=== PATIENT | male | born 1955 ===

== ENCOUNTER 2017-12-20 01:16 | Emergency (ER) | payer OTHER ==
[2017-12-20 01:33] VITALS: RESP 20
[2017-12-20] MEDS ORDERED: Albuterol-Ipratrop 3 mg / 0.5 (3 ml) UD ONE ×2 (01:36→01:52)
--- NOTE | 2017-12-20 01:37 | C.PDOC ---
History Of Present Illness Patient with a Hx of asthma presents to the ER with a complaint of wheezing that began an hour ago. Patient is currently speaking in complete sentences; denies chest pain, nausea, or vomiting. Time Seen by Provider: 12/20/17 01:36 Chief Complaint (Nursing): Shortness Of Breath History Per: Patient History/Exam Limitations: no limitations Onset/Duration Of Symptoms: Hrs Current Symptoms Are (Timing): Still Present Initiating Event: Other (not known) Current Respiratory Medications: None Severity: Moderate Pain Scale Rating Of: 4 Associated Symptoms: denies: Fever, Chills, Chest Pain Past Medical History Reviewed: Historical Data, Nursing Documentation, Vital Signs Vital Signs: Last Vital Signs Temp 98 F 12/20/17 01:29 Pulse 86 12/20/17 01:29 Resp 20 12/20/17 01:29 BP 153/82 H 12/20/17 01:29 Pulse Ox 99 12/20/17 01:51 - Medical History PMH: Emphysema, Hypercholesterolemia Family History: States: No Known Family Hx - Social History Hx Alcohol Use: No Hx Substance Use: No Review Of Systems Constitutional: Negative for: Fever, Chills Cardiovascular: Negative for: Chest Pain, Palpitations Respiratory: Positive for: Wheezing Gastrointestinal: Negative for: Nausea, Vomiting Physical Exam - Physical Exam Appears: Non-toxic Skin: Warm, Dry Head: Normacephalic Oral Mucosa: Moist Chest: Symmetrical, No Tenderness Cardiovascular: Rhythm Regular Respiratory: No Rales, No Rhonchi, Wheezing (Scattered) Gastrointestinal/Abdominal: Soft, No Tenderness Neurological/Psych: Oriented x3 ED Course And Treatment O2 Sat by Pulse Oximetry: 99 (room air) Pulse Ox Interpretation: Normal Progress Note: Prednisone and albuterol nebulizer administered. Reevaluation Time: 02:40 Reassessment Condition: Improved Critical Care Time - Critical Care Note Total Time (in mins): 30 Documented critical care: time excludes all time spent performing seperately billable procedures. Disposition Counseled Patient/Family Regarding: Studies Performed, Diagnosis, Need For Followup - Disposition Referrals: [facility] [Outside] [facility] [Outside] Disposition: HOME/ ROUTINE Disposition Time: 01:37 Condition: FAIR Prescriptions: predniSONE [predniSONE Tab] 20 mg PO DAILY #5 tab Instructions: Asthma, Adult (DC) Forms: [employer] (Sudanese) - Clinical Impression Clinical Impression: Asthma exacerbation - Scribe Statement The provider has reviewed the documentation as recorded by the Scribe Heath Kumar All medical record entries made by the Scribe were at my direction and personally dictated by me. I have reviewed the chart and agree that the record accurately reflects my personal performance of the history, physical exam, medical decision making, and the department course for this patient. I have also personally directed, reviewed, and agree with the discharge instructions and disposition.
[2017-12-20] MEDS: Albuterol-Ipratrop 3 mg / 0.5 (3 ml) UD IH SCH (01:51)
[2017-12-20 02:50] VITALS: BP 134/81; PULSE 94; TEMP 98.5; O2SAT 94
== END 2017-12-20 03:02 | disposition home or self-care (01) ==
LOC: C.ER 01:16
DX: J45.901 Unspecified asthma with (acute) exacerbation (principal)

== ENCOUNTER 2017-12-20 20:42 | Inpatient (IN) | payer OTHER ==
[2017-12-20] MEDS ORDERED: Albuterol-Ipratrop 3 mg / 0.5 (3 ml) UD ONE ×2 (20:55→21:43)
[2017-12-20] MEDS ORDERED: Albuterol-Ipratrop 3 mg / 0.5 (3 ml) UD IH SCH (21:15)
[2017-12-20 21:29] LABS: BASO % 0.4 % (0.0-2.0); EOS # 0.1 K/uL (0.0-0.7); EOS % 0.8 % (0.0-4.0); HEMOGLOBIN 13.4 g/dL (12.0-18.0); LYMPH # 1.3 K/uL (1.0-4.3); LYMPH % 13.8 % (20.0-40.0); MEAN CELL VOLUME 79.2 fL (80.0-94.0); MEAN CORPUSCULAR HEMOGLOBIN 27.3 pg (27.0-31.0); MEAN CORPUSCULAR HGB CONC 34.5 g/dL (33.0-37.0); MEAN PLATELET VOLUME 8.1 fL (7.2-11.7); MONO # 0.7 K/uL (0.0-0.8); RBC 4.91 Mil/uL (4.40-5.90); RED CELL DISTRIBUTION WIDTH 15.4 % (11.5-14.5); WHITE BLOOD COUNT 9.1 K/uL (4.8-10.8)
[2017-12-20 21:40] LABS: ALB/GLOB RATIO 0.8 (1.0-2.1); ALBUMIN 2.8 g/dL (3.5-5.0); ALT/SGPT 51 U/L (21-72); AST/SGOT 45 U/L (17-59); BLOOD UREA NITROGEN 14 mg/dL (9-20); CALCIUM 7.5 mg/dl (8.6-10.4); GFR AFRICAN-AMERICAN > 60; GFR NON-AFRICAN AMERICAN > 60
[2017-12-20 21:52] LABS: B-TYPE NATRIURETIC PEPTIDE 231 pg/mL (0-900)
[2017-12-20] MEDS ORDERED: cefTRIAXone IV 1 gm in Dextros 50 ML IVPB ONE ×2 (22:25→22:42)
[2017-12-20] MEDS ORDERED: Azithromycin 500 MG in Sodium Chloride 0.9% 250 ML IVPB STA (22:26)
--- NOTE | 2017-12-20 23:43 | C.PDOC ---
Time Seen by Provider: 12/20/17 20:57 Chief Complaint (Nursing): Shortness Of Breath History Per: Patient Onset/Duration Of Symptoms: Days (few) Current Symptoms Are (Timing): Worse Current Respiratory Medications: See Home Med List Severity: Moderate Associated Symptoms: Productive Cough Reports Recently: Seen In ED Additional History Per: Prior Records Past Medical History Reviewed: Historical Data, Nursing Documentation, Vital Signs Vital Signs: Last Vital Signs Temp 97.8 F 12/20/17 20:47 Pulse 102 H 12/20/17 22:47 Resp 19 12/20/17 22:47 BP 112/70 12/20/17 22:47 Pulse Ox 98 12/20/17 22:47 - Medical History PMH: COPD, Emphysema, Hypercholesterolemia Family History: States: Unknown Family Hx - Social History Hx Tobacco Use: No (quit years ago) Hx Alcohol Use: No Hx Substance Use: No Review Of Systems Except As Marked, All Systems Reviewed And Found Negative. Constitutional: Negative for: Weakness ENT: Negative for: Throat Pain Cardiovascular: Negative for: Chest Pain Respiratory: Positive for: Cough, Shortness of Breath, Sputum, Wheezing. Negative for: Hemoptysis Gastrointestinal: Negative for: Vomiting, Abdominal Pain, Diarrhea Musculoskeletal: Negative for: Neck Pain, Back Pain, Leg Pain Skin: Negative for: Rash Neurological: Negative for: Weakness, Numbness Physical Exam - Physical Exam Appears: Non-toxic, In Acute Distress (mild) Skin: Normal Color, Warm, Dry, No Rash Head: Atraumatic, Normacephalic Eye(s): bilateral: Normal Inspection, PERRL, EOMI Neck: Normal ROM, Supple Cardiovascular: Rhythm Regular Respiratory: No Accessory Muscle Use, Wheezing Gastrointestinal/Abdominal: Soft, No Tenderness Extremity: Normal ROM, No Pedal Edema, No Calf Tenderness Neurological/Psych: Oriented x3, Normal Motor, Normal Sensation ED Course And Treatment - Laboratory Results Result Diagrams: 12/20/17 21:23 12/20/17 21:23 Lab Interpretation: No Acute Changes O2 Sat by Pulse Oximetry: 98 Pulse Ox Interpretation: Normal - Radiology CXR: Interpreted by Me, Viewed By Me CXR Interpretation: Yes: Infiltrates (small), COPD Progress - Interventions Interventions:: Observation, Oxygen - Medications Administered Inhaled nebulized: Anticholinergic, Beta-2 agonist Intravenous: Corticosteroid, Other (Abx) - Data Reviewed Data Reviewed: Lab, Diagnostic imaging, Old records - Patient Status Patient status: Partially improved - Critical Care Citical Care: Excluding Proc Time Critical Care Time: 45 minutes - Continuity of Care Discussed patient case with:: Patient, ED Nurse, On-call PMD-pt unassigned - Patient Plan Patient Plan: Admission Disposition Discussed With DrShiloh: Billy Collins Comment: He accepted pt on his service. Doctor Will See Patient In The: Hospital Counseled Patient/Family Regarding: Studies Performed, Diagnosis - Disposition Disposition: HOSPITALIZED Disposition Time: 23:46 Condition: FAIR - Clinical Impression Clinical Impression: Chr obstructive pulmonary disease w/ acute lower respiratory infxn
[2017-12-21] MEDS ORDERED: guaiFENesin 200 mg/10 ml Syrup UD PO PRN (01:23)
[2017-12-21] MEDS: Albuterol-Ipratrop 3 mg / 0.5 (3 ml) UD INH SCH ×5 (03:27→19:53)
[2017-12-21] MEDS: Fluticasone-Salmeterol 250-50mcg Diskus INH SCH ×2 (08:08→19:48)
[2017-12-21] MEDS: (Novolin R) Insulin Human Regular 100 units/ml vial SC SCH ×4 (09:33→22:22)
[2017-12-21] MEDS: Enoxaparin 40 mg Syringe SC SCH (09:34)
--- NOTE | 2017-12-21 09:44 | CP.PCM.HP ---
History of Present Illness - History of Present Illness History of Present Illness: CC: shortness of breath HPI: Middle aged male with PMH of COPD, chronic ex smoker, non complaint with diet, medication and follow up came in with complain of cough, congestion, shortness of breath which started one week ago associated with chest pain on coughing, thick sputum production, he is able to beeing up ecreations, he has body aches, tiredness, dyspnea on rest, dyspnea on exertion, he came to ER on was given medications and went back but didnt improved and came back Present on Admission - Present on Admission Any Indicators Present on Admission: Yes Review of Systems - Review of Systems Systems not reviewed;Unavailable: Acuity of Condition - Constitutional Constitutional: Fatigue, Lethargy, Malaise, Weakness - EENT Eyes: absent: As Per HPI, Blind Spots, Blurred Vision, Change in Vision, Decreased Night Vision, Diplopia, Discharge, Dry Eye, Exophthalmos, Floaters, Irritation, Itchy Eyes, Loss of Peripheral Vision, Pain, Photophobia, Requires Corrective Lenses, Sees Flashes, Spots in Vision, Tunnel Vision, Other Visual Disturbances, Loss of Vision, Other Ears: absent: As Per HPI, Decreased Hearing, Ear Discharge, Ear Pain, Tinnitus, Abnormal Hearing, Disequilibrium, Dizziness, Other Nose/Mouth/Throat: Nasal Congestion. absent: As Per HPI, Epistaxis, Nasal Discharge, Nasal Obstruction, Nasal Trauma, Nose Pain, Post Nasal Drip, Sinus Pain, Sinus Pressure, Bleeding Gums, Change in Voice, Dental Pain, Dry Mouth, Dysphagia, Halitosis, Hoarsness, Lip Swelling, Mouth Lesions, Mouth Pain, Odynophagia, Sore Throat, Throat Swelling, Tongue Swelling, Facial Pain, Neck Pain, Neck Mass, Other - Cardiovascular Cardiovascular: Chest Pain with Activity, Dyspnea, Dyspnea on Exertion. absent : As Per HPI, Acrocyanosis, Chest Pain, Chest Pain at Rest, Claudication, Diaphoresis, Edema, Irregular Heart Rhythm, Pain Radiating to Arm/Neck/Jaw, Leg Edema, Leg Ulcers, Lightheadedness, Orthopnea, Palpitations, Paroxysmal Nocturnal Dyspnea, Pedal Edema, Radiating Pain, Rapid Heart Rate, Slow Heart Rate, Syncope, Other - Respiratory Respiratory: Cough, Dyspnea, Wheezing, Chest Congestion - Gastrointestinal Gastrointestinal: absent: As Per HPI, Abdominal Pain, Belching, Bloating, Change in Bowel Habits, Change in Stool Character, Coffee Ground Emesis, Constipation, Cramping, Diarrhea, Dyspepsia, Dysphagia, Early Satiety, Excessive Flatus, Fecal Incontinence, Heartburn, Hematemesis, Hematochezia, Loose Stools, Melena, Nausea, Odynophagia, Temesmus, Vomiting, Other - Genitourinary Genitourinary: absent: As Per HPI, Change in Urinary Stream, Difficulty Urinating, Dysuria, Flank Pain, Hematuria, Pyuria, Nocturia, Urinary Incontinence, Urinary Frequency, Urinary Hesitance, Urinary Urgency, Voiding Freq/Small Amts, Freq UTI, Hx Renal/Bladder Calculi, Hx /Renal Surgery, Bladder Distension, Other - Musculoskeletal Musculoskeletal: Myalgias - Integumentary Integumentary: absent: As Per HPI, Acne, Alopecia, Bleeding Lesions, Change in Hair, Change in Nails, Change in Pigmentation, Changing Lesions, Dry Skin, Erythema, Furuncle, Hirsutism, Lesions, New Lesions, Non-Healing Lesions, Photosensitivity, Pruritus, Rash, Skin Pain, Skin Ulcer, Sores, Striae, Swelling , Unusual Bruising, Wounds, Jaundice, Other Past Patient History - Infectious Disease Hx of Infectious Diseases: None - Past Social History Smoking Status: Former Smoker - CARDIAC Hx Cardiac Disorders: Yes Hx Hypercholesterolemia: Yes - PULMONARY Hx Respiratory Disorders: Yes Hx Chronic Obstructive Pulmonary Disease (COPD): Yes Hx Emphysema: Yes - NEUROLOGICAL Hx Neurological Disorder: No - HEENT Hx HEENT Problems: No - RENAL Hx Chronic Kidney Disease: No - ENDOCRINE/METABOLIC Hx Endocrine Disorders: Yes Hx Diabetes Mellitus Type 1: Yes - HEMATOLOGICAL/ONCOLOGICAL Hx Blood Disorders: No - INTEGUMENTARY Hx Dermatological Problems: No - MUSCULOSKELETAL/RHEUMATOLOGICAL Hx Falls: No - GASTROINTESTINAL Hx Gastrointestinal Disorders: No - GENITOURINARY/GYNECOLOGICAL Hx Genitourinary Disorders: No - PSYCHIATRIC Hx Substance Use: No - SURGICAL HISTORY Hx Surgeries: Yes Hx Herniorrhaphy: Yes - ANESTHESIA Hx Anesthesia: Yes Hx Anesthesia Reactions: No Meds Home Medications: Home Medication List Medication Instructions Recorded Confirmed Type Amoxicillin/Clavulanate [Augmentin 1 tab PO BID 14 Days tab 12/23/17 Rx 875 MG-125 MG] guaiFENesin [Robitussin] 200 mg PO Q4H PRN udc 12/23/17 Rx predniSONE [Prednisone] 40 mg PO DAILY 4 Days tab 12/23/17 Rx Allergies/Adverse Reactions: Allergies Allergy/AdvReac Type Severity Reaction Status Date / Time No Known Allergies Allergy Verified 12/20/17 20:50 Physical Exam - Constitutional Appears: No Acute Distress - Head Exam Head Exam: ATRAUMATIC, NORMAL INSPECTION, NORMOCEPHALIC - Eye Exam Eye Exam: EOMI, Normal appearance, PERRL Pupil Exam: NORMAL ACCOMODATION, PERRL - ENT Exam ENT Exam: Mucous Membranes Moist, Normal Exam - Respiratory Exam Respiratory Exam: Decreased Breath Sounds, Rales, Wheezes - Cardiovascular Exam Cardiovascular Exam: REGULAR RHYTHM - GI/Abdominal Exam GI & Abdominal Exam: Normal Bowel Sounds, Soft. absent: Tenderness - Extremities Exam Extremities exam: Positive for: normal inspection - Back Exam Back exam: NORMAL INSPECTION - Skin Skin Exam: Dry, Intact, Normal Color, Warm Results - Vital Signs Recent Vital Signs: Last Vital Signs Temp 97.6 F 12/21/17 01:05 Pulse 92 H 12/21/17 08:09 Resp 20 12/21/17 01:05 BP 135/64 12/21/17 01:05 Pulse Ox 97 12/21/17 02:43 - Labs Result Diagrams: 12/22/17 09:16 12/22/17 09:16 Labs: Laboratory Results - last 24 hr 12/20/17 12/20/17 12/21/17 21:23 21:23 07:17 WBC 9.1 RBC 4.91 Hgb 13.4 Hct 38.9 MCV 79.2 L MCH 27.3 MCHC 34.5 RDW 15.4 H Plt Count 317 MPV 8.1 Neut % (Auto) 77.0 H Lymph % (Auto) 13.8 L Burt % (Auto) 8.0 Eos % (Auto) 0.8 Baso % (Auto) 0.4 Neut # (Auto) 7.0 Lymph # (Auto) 1.3 Burt # (Auto) 0.7 Eos # (Auto) 0.1 Baso # (Auto) 0.0 Sodium 141 Potassium 3.9 Chloride 106 Carbon Dioxide 24 Anion Gap 15 BUN 14 Creatinine 0.6 L Est GFR ( Amer) > 60 Est GFR (Non-Af Amer) > 60 POC Glucose (mg/dL) 172 H Random Glucose 123 H Calcium 7.5 L Magnesium 1.6 Total Bilirubin 0.3 AST 45 ALT 51 Alkaline Phosphatase 124 Troponin I < 0.0120 NT-Pro-B Natriuret Pep 231 Total Protein 6.1 L Albumin 2.8 L Globulin 3.4 Albumin/Globulin Ratio 0.8 L Assessment & Plan (1) Asthma exacerbation Status: Acute (2) Chr obstructive pulmonary disease w/ acute lower respiratory infxn Status: Acute
[2017-12-21] MEDS ORDERED: Ergocalciferol 50,000 Intl Units Cap PO SCH (10:00)
[2017-12-21] MEDS: MethylPREDNISolone 40 mg Vial IV SCH ×2 (11:47→21:38)
--- NOTE | 2017-12-21 15:39 | RAD ---
HISTORY: SOB, cough COMPARISON: No prior study available for comparison TECHNIQUE: Chest PA and lateral FINDINGS: LUNGS: Mild hyperinflation ; rule out COPD or emphysema. There also appear to be some minor scarring changes in the left lung base There are 2 small densities right more conspicuous and slightly larger than left, seen in both lung bases which could represent vessel on end or nipple shadow artifact. Note the small densities are not seen in the lateral projection however possibility of small nodule not excluded. Recommend followup CT scan of the chest for further evaluation. PLEURA: No significant pleural effusion identified. No pneumothorax apparent. CARDIOVASCULAR: Normal. OSSEOUS STRUCTURES: No significant abnormalities. VISUALIZED UPPER ABDOMEN: Normal. OTHER FINDINGS: None. IMPRESSION: Mild hyperinflation ; rule out COPD or emphysema. There also appear to be some minor scarring changes in the left lung base There are 2 small densities right more conspicuous and slightly larger than left, seen in both lung bases which could represent vessel on end or nipple shadow artifact. Possibility of small nodule not excluded. Recommend followup CT scan of the chest for further evaluation. Note this report was placed in PA review folder for followup
[2017-12-21] MEDS: Budesonide 0.25 mg/2 ml Inhal Susp UD INH SCH (19:48)
[2017-12-21] MEDS: Azithromycin 500 MG in Sodium Chloride 0.9% 250 ML IVPB SCH (22:02)
[2017-12-22] MEDS: Albuterol-Ipratrop 3 mg / 0.5 (3 ml) UD INH SCH ×4 (01:08→19:37)
[2017-12-22] MEDS: Budesonide 0.25 mg/2 ml Inhal Susp UD INH SCH ×2 (07:48→19:37)
[2017-12-22] MEDS: Fluticasone-Salmeterol 250-50mcg Diskus INH SCH (07:49)
[2017-12-22] MEDS: (Novolin R) Insulin Human Regular 100 units/ml vial SC SCH ×4 (08:24→21:59)
[2017-12-22 09:23] LABS: HEMOGLOBIN 13.2 g/dL (12.0-18.0); MEAN CELL VOLUME 80.1 fL (80.0-94.0); MEAN CORPUSCULAR HEMOGLOBIN 27.9 pg (27.0-31.0); MEAN CORPUSCULAR HGB CONC 34.9 g/dL (33.0-37.0); MEAN PLATELET VOLUME 8.5 fL (7.2-11.7); RBC 4.71 Mil/uL (4.40-5.90); RED CELL DISTRIBUTION WIDTH 15.5 % (11.5-14.5); WHITE BLOOD COUNT 12.4 K/uL (4.8-10.8)
[2017-12-22 09:44] LABS: BLOOD UREA NITROGEN 15 mg/dL (9-20); CALCIUM 8.3 mg/dl (8.6-10.4); GFR AFRICAN-AMERICAN > 60; GFR NON-AFRICAN AMERICAN > 60
[2017-12-22] MEDS: Enoxaparin 40 mg Syringe SC SCH (10:19)
[2017-12-22] MEDS: MethylPREDNISolone 40 mg Vial IV SCH ×2 (10:20→22:09)
[2017-12-22] MEDS: Azithromycin 500 MG in Sodium Chloride 0.9% 250 ML IVPB SCH (22:53)
--- NOTE | 2017-12-23 00:41 | CP.PCM.PN ---
Subjective - Date & Time of Evaluation Date of Evaluation: 12/22/17 Time of Evaluation: 18:35 - Subjective Subjective: Pt seen and examined , less cough, less short of breath, less wheezing Objective - Vital Signs/Intake and Output Vital Signs (last 24 hours): Temp Pulse Resp BP Pulse Ox 99.9 F H 92 H 20 100/65 97 12/23/17 00:08 12/23/17 00:08 12/23/17 00:08 12/23/17 00:08 12/23/17 00:08 Intake and Output: 12/22/17 12/23/17 18:59 06:59 Intake Total 1000 Balance 1000 - Medications Medications: Current Medications Albuterol/Ipratropium (Duoneb 3 Mg/0.5 Mg (3 Ml) Ud) 3 ml INH RQ6 [facility] Last Admin: 12/22/17 19:37 Dose: 3 ml Ascorbic Acid (Vitamin C 500 Mg Tab) 500 mg PO BID [facility] Last Admin: 12/22/17 19:00 Dose: 500 mg Budesonide (Pulmicort Respules) 0.25 mg INH RQ12 [facility] Last Admin: 12/22/17 19:37 Dose: 0.25 mg Enoxaparin Sodium (Lovenox) 40 mg SC DAILY [facility] Last Admin: 12/22/17 10:19 Dose: 40 mg Ergocalciferol (Drisdol 50,000 Intl Units Cap) 1 cap PO QWK [facility] Last Admin: 12/21/17 09:34 Dose: 1 cap Ferrous Sulfate (Feosol) 325 mg PO BID [facility] Last Admin: 12/22/17 17:14 Dose: 325 mg Folic Acid (Folic Acid) 1 mg PO DAILY [facility] Last Admin: 12/22/17 10:19 Dose: 1 mg Guaifenesin (Robitussin) 200 mg PO Q4H PRN PRN Reason: Cough and congestion Last Admin: 12/22/17 10:27 Dose: 200 mg Ceftriaxone Sodium 1 gm/ (Sodium Chloride) 100 mls @ 100 mls/hr IVPB DAILY [facility] PRN Reason: Protocol Last Admin: 12/22/17 10:20 Dose: 100 mls/hr Azithromycin 500 mg/ Sodium (Chloride) 250 mls @ 167 mls/hr IVPB Q24H [facility] PRN Reason: Protocol Last Admin: 12/22/17 22:53 Dose: 167 mls/hr Insulin Human Regular (Novolin R) 0 unit SC ACHS [facility] PRN Reason: Protocol Last Admin: 12/22/17 21:59 Dose: Not Given Metformin HCl (Glucophage) 500 mg PO BIDCC [facility] Last Admin: 12/22/17 17:00 Dose: 500 mg Methylprednisolone (Solu-Medrol) 60 mg IV Q12H [facility] Last Admin: 12/22/17 22:09 Dose: 60 mg Rosuvastatin Calcium (Crestor) 10 mg PO HS [facility] Last Admin: 12/22/17 22:07 Dose: 10 mg Fluticasone/Salmeterol (Advair Diskus 250/50) 1 puff INH RQ12 [facility] Last Admin: 12/22/17 07:49 Dose: Not Given - Labs Labs: 12/22/17 09:16 12/22/17 09:16 - Constitutional Appears: No Acute Distress - Head Exam Head Exam: ATRAUMATIC, NORMAL INSPECTION, NORMOCEPHALIC - Eye Exam Eye Exam: EOMI, Normal appearance, PERRL Pupil Exam: NORMAL ACCOMODATION, PERRL - Respiratory Exam Respiratory Exam: Decreased Breath Sounds, Rhonchi, Wheezes - Cardiovascular Exam Cardiovascular Exam: REGULAR RHYTHM, +S1, +S2. absent: Murmur - GI/Abdominal Exam GI & Abdominal Exam: Soft, Normal Bowel Sounds. absent: Tenderness Assessment and Plan (1) Asthma exacerbation Status: Acute (2) Chr obstructive pulmonary disease w/ acute lower respiratory infxn Status: Acute
[2017-12-23] MEDS: Albuterol-Ipratrop 3 mg / 0.5 (3 ml) UD INH SCH ×3 (01:40→13:20)
[2017-12-23] MEDS: Fluticasone-Salmeterol 250-50mcg Diskus INH SCH (07:10)
[2017-12-23] MEDS: Budesonide 0.25 mg/2 ml Inhal Susp UD INH SCH (07:10)
[2017-12-23 07:59] VITALS: BP 102/56; PULSE 72; RESP 18; TEMP 97.9; O2SAT 95
[2017-12-23] MEDS: (Novolin R) Insulin Human Regular 100 units/ml vial SC SCH ×2 (10:06→13:00)
[2017-12-23] MEDS: Enoxaparin 40 mg Syringe SC SCH (10:07)
[2017-12-23] MEDS: MethylPREDNISolone 40 mg Vial IV SCH (10:07)
--- NOTE | 2017-12-23 13:17 | CP.PCM.PN ---
Subjective - Date & Time of Evaluation Date of Evaluation: 12/23/17 Time of Evaluation: 13:12 - Subjective Subjective: PATIENT WAS ADMITTED FOR COPD EXAC AND PNA DENIES ANY CHEST PAIN/ SOB/ NAUSEA/ OR VOMITING NO SIGN OF DISTRESS NOTED Objective - Vital Signs/Intake and Output Vital Signs (last 24 hours): Temp Pulse Resp BP Pulse Ox 97.9 F 72 18 102/56 L 95 12/23/17 07:05 12/23/17 07:05 12/23/17 07:05 12/23/17 07:05 12/23/17 07:05 Intake and Output: 12/23/17 12/23/17 06:59 18:59 Intake Total 250 Balance 250 - Medications Medications: Current Medications Albuterol/Ipratropium (Duoneb 3 Mg/0.5 Mg (3 Ml) Ud) 3 ml INH RQ6 [facility] Last Admin: 12/23/17 07:10 Dose: 3 ml Ascorbic Acid (Vitamin C 500 Mg Tab) 500 mg PO BID [facility] Last Admin: 12/23/17 10:07 Dose: 500 mg Budesonide (Pulmicort Respules) 0.25 mg INH RQ12 [facility] Last Admin: 12/23/17 07:10 Dose: Not Given Enoxaparin Sodium (Lovenox) 40 mg SC DAILY [facility] Last Admin: 12/23/17 10:07 Dose: 40 mg Ergocalciferol (Drisdol 50,000 Intl Units Cap) 1 cap PO QWK [facility] Last Admin: 12/21/17 09:34 Dose: 1 cap Ferrous Sulfate (Feosol) 325 mg PO BID [facility] Last Admin: 12/23/17 10:07 Dose: 325 mg Folic Acid (Folic Acid) 1 mg PO DAILY [facility] Last Admin: 12/23/17 10:07 Dose: 1 mg Guaifenesin (Robitussin) 200 mg PO Q4H PRN PRN Reason: Cough and congestion Last Admin: 12/22/17 10:27 Dose: 200 mg Ceftriaxone Sodium 1 gm/ (Sodium Chloride) 100 mls @ 100 mls/hr IVPB DAILY [facility] PRN Reason: Protocol Last Admin: 12/23/17 10:43 Dose: 100 mls/hr Azithromycin 500 mg/ Sodium (Chloride) 250 mls @ 167 mls/hr IVPB Q24H [facility] PRN Reason: Protocol Last Admin: 12/22/17 22:53 Dose: 167 mls/hr Insulin Human Regular (Novolin R) 0 unit SC ACHS [facility] PRN Reason: Protocol Last Admin: 12/23/17 10:06 Dose: 2 unit Metformin HCl (Glucophage) 500 mg PO BIDCC [facility] Last Admin: 12/23/17 10:06 Dose: 500 mg Methylprednisolone (Solu-Medrol) 60 mg IV Q12H [facility] Last Admin: 12/23/17 10:07 Dose: 60 mg Rosuvastatin Calcium (Crestor) 10 mg PO HS [facility] Last Admin: 12/22/17 22:07 Dose: 10 mg Fluticasone/Salmeterol (Advair Diskus 250/50) 1 puff INH RQ12 [facility] Last Admin: 12/23/17 07:10 Dose: Not Given - Labs Labs: 12/22/17 09:16 12/22/17 09:16 Assessment and Plan - Assessment and Plan (Free Text) Assessment: PATIENT SEEN AND EXAMINED AT THE BEDSIDE LUNG SOUND IMPROVES CARO AFEBRILE/ WBC IS WNL FOLLOW UP WITH DR MARTIN AT HIS OFFICE IN A WEEK ---CALL FOR APPOINTMENT CONTINUE ALL YOUR HOME MEDICATION NEW PRESCRIPTION GIVEN BY DR MARTIN PREDNISONE 40 MG ONE DAILY BY MOUTH FOR 4 DAYS AUGMENTIN 875 MG PO BID FOR [address] MARTIN OR GO TO THE EMERGENCY ROOM IF SYMPTOMS RETURN OR WORSENING DISCUSS WITH PATIENT WHO AGREE AND VERBALIZED UNDERSTANDING
--- NOTE | 2017-12-23 18:43 | CP.PCM.DIS ---
Provider - Provider Date of Admission: 12/20/17 23:47 Attending physician: Billy Collins MD Time Spent in preparation of Discharge (in minutes): 52 Diagnosis - Discharge Diagnosis (1) Asthma exacerbation Status: Acute (2) Chr obstructive pulmonary disease w/ acute lower respiratory infxn Status: Acute Hospital Course - Lab Results Lab Results: Micro Results 12/20/17 22:00 Blood Blood Culture - Preliminary NO GROWTH AFTER 48 HOURS 12/20/17 22:30 Blood Blood Culture - Preliminary NO GROWTH AFTER 48 HOURS Most Recent Lab Values WBC 12.4 K/uL (4.8-10.8) H 12/22/17 09:16 RBC 4.71 Mil/uL (4.40-5.90) 12/22/17 09:16 Hgb 13.2 g/dL (12.0-18.0) 12/22/17 09:16 Hct 37.8 % (35.0-51.0) 12/22/17 09:16 MCV 80.1 fL (80.0-94.0) 12/22/17 09:16 MCH 27.9 pg (27.0-31.0) 12/22/17 09:16 MCHC 34.9 g/dL (33.0-37.0) 12/22/17 09:16 RDW 15.5 % (11.5-14.5) H 12/22/17 09:16 Plt Count 291 K/uL (130-400) 12/22/17 09:16 MPV 8.5 fL (7.2-11.7) 12/22/17 09:16 Neut % (Auto) 77.0 % (50.0-75.0) H 12/20/17 21:23 Lymph % (Auto) 13.8 % (20.0-40.0) L 12/20/17 21:23 Walker % (Auto) 8.0 % (0.0-10.0) 12/20/17 21:23 Eos % (Auto) 0.8 % (0.0-4.0) 12/20/17 21:23 Baso % (Auto) 0.4 % (0.0-2.0) 12/20/17 21:23 Neut # (Auto) 7.0 K/uL (1.8-7.0) 12/20/17 21:23 Lymph # (Auto) 1.3 K/uL (1.0-4.3) 12/20/17 21:23 Walker # (Auto) 0.7 K/uL (0.0-0.8) 12/20/17 21:23 Eos # (Auto) 0.1 K/uL (0.0-0.7) 12/20/17 21:23 Baso # (Auto) 0.0 K/uL (0.0-0.2) 12/20/17 21:23 Sodium 141 mmol/L (132-148) 12/22/17 09:16 Potassium 4.3 mmol/L (3.6-5.2) 12/22/17 09:16 Chloride 102 mmol/L (98-107) 12/22/17 09:16 Carbon Dioxide 27 mmol/L (22-30) 12/22/17 09:16 Anion Gap 16 (10-20) 12/22/17 09:16 BUN 15 mg/dL (9-20) 12/22/17 09:16 Creatinine 0.7 mg/dL (0.8-1.5) L 12/22/17 09:16 Est GFR ( Amer) > 60 12/22/17 09:16 Est GFR (Non-Af Amer) > 60 12/22/17 09:16 POC Glucose (mg/dL) 308 mg/dL (65-110) H 12/23/17 11:47 Random Glucose 276 mg/dL (75-110) H 12/22/17 09:16 Calcium 8.3 mg/dl (8.6-10.4) L 12/22/17 09:16 Magnesium 1.6 mg/dL (1.6-2.3) 12/20/17 21:23 Total Bilirubin 0.3 mg/dL (0.2-1.3) 12/20/17 21:23 AST 45 U/L (17-59) 12/20/17 21:23 ALT 51 U/L (21-72) 12/20/17 21:23 Alkaline Phosphatase 124 U/L (38-126) 12/20/17 21:23 Troponin I < 0.0120 ng/mL (0.00-0.120) 12/20/17 21:23 NT-Pro-B Natriuret Pep 231 pg/mL (0-900) 12/20/17 21:23 Total Protein 6.1 g/dL (6.3-8.3) L 12/20/17 21:23 Albumin 2.8 g/dL (3.5-5.0) L 12/20/17 21:23 Globulin 3.4 gm/dL (2.2-3.9) 12/20/17 21:23 Albumin/Globulin Ratio 0.8 (1.0-2.1) L 12/20/17 21:23 - Hospital Course Hospital Course: Pt is for discharge Discharge Exam - Head Exam Head Exam: ATRAUMATIC, NORMAL INSPECTION, NORMOCEPHALIC Discharge Plan - Discharge Medications Prescriptions: Amoxicillin/Clavulanate [Augmentin 875 MG-125 MG] 1 tab PO BID 14 Days tab predniSONE [Prednisone] 40 mg PO DAILY 4 Days tab - Follow Up Plan Condition: FAIR Disposition: HOME/ ROUTINE Instructions: COPD Including Emphysema (DC), Amoxicillin and Clavulanate, Prednisone, Breathing Exercises Additional Instructions: FOLLOW UP WITH DR COLLINS AT HIS OFFICE IN A WEEK ---CALL FOR APPOINTMENT CONTINUE ALL YOUR HOME MEDICATION NEW PRESCRIPTION GIVEN BY DR COLLINS PREDNISONE 40 MG ONE DAILY BY MOUTH FOR 4 DAYS AUGMENTIN 875 MG PO BID FOR [address] COLLINS OR GO TO THE EMERGENCY ROOM IF SYMPTOMS RETURN OR WORSENING Referrals: Billy Collins MD [Staff Provider] - 1 Week
== END 2017-12-23 14:13 | disposition home or self-care (01) | DRG 190 ==
LOC: C.ER 20:42 → C.9E 23:47 → C.3T 12-21 00:05 → C.5S 12-23 06:20
PROVIDERS: ADMIT Internal Medicine; ATTEND Internal Medicine
DX: J44.1 Chronic obstructive pulmonary disease with (acute) exacerbation (principal); J18.9 Pneumonia, unspecified organism; J45.901 Unspecified asthma with (acute) exacerbation; J44.0 Chronic obstructive pulmonary disease with (acute) lower respiratory infection; Z79.4 Long term (current) use of insulin; Z87.891 Personal history of nicotine dependence; E78.00 Pure hypercholesterolemia, unspecified; E10.9 Type 1 diabetes mellitus without complications